=== PATIENT | male | born 1975 | race Caucasian/White ===

== ENCOUNTER → 2018-03-18 15:09 | Outpatient (CLI) | payer BC, SELFPAY ==
--- NOTE | 2018-03-18 15:18 | XR_ITS ---
XR ankle LT min 3V HISTORY: Pain following injury ITS.REASON: LEFT ANKLE INJURY ORDERING PHYSICIAN: Rick Neal MD PATIENT AGE: 42 years COMPARISON: None FINDINGS: Study is obtained through a splint/cast. Minimally displaced avulsion fracture involves the tip of the medial malleolus. On the lateral view there is a longitudinal lucency along the posterior aspect of the distal tibia/fibula suggesting a nondisplaced fracture. Correlation with precast films needed to determine which bone exactly this is in. IMPRESSION: 1. Minimally displaced avulsion fracture of the tip of the medial malleolus. 2. Longitudinal fracture of the posterior aspect of the distal tibia/fibular region. This may be in the fibula. Correlation with precast images needed
== END ==
PROVIDERS: PCP Physician Assistant; Visit Provider Orthopaedic Surgery
DX: S82.852A Displaced trimalleolar fracture of left lower leg, initial encounter for closed fracture (principal); S82.832A Other fracture of upper and lower end of left fibula, initial encounter for closed fracture
CPT/HCPCS: 73610

== ENCOUNTER → 2018-04-03 08:29 | Outpatient (CLI) | payer BC, SELFPAY ==
--- NOTE | 2018-04-03 08:34 | XR_ITS ---
XR ankle LT min 3V HISTORY: Follow-up surgery ITS.REASON: 2 week post op ORDERING PHYSICIAN: Rick Neal MD PATIENT AGE: 42 years Comparison: None FINDINGS: Study is obtained through cast. Status post syndesmosis repair with transverse lucencies at the distal tibia and fibula with 2 small metallic buttons on the medial aspect of the tibia and fibula overall not severely change. The ankle mortise is preserved. Avulsion fractures present medial malleolus. Suspected longitudinal fracture posterior distal tibia in good alignment IMPRESSION: Overall no change status post syndesmosis repair of the tibia and fibula
== END ==
PROVIDERS: PCP Physician Assistant; Visit Provider Orthopaedic Surgery
DX: Z48.89 Encounter for other specified surgical aftercare (principal)
CPT/HCPCS: 73610

== ENCOUNTER → 2018-05-01 10:26 | Outpatient (CLI) | payer BC, SELFPAY ==
--- NOTE | 2018-05-01 10:28 | XR_ITS ---
XR ankle LT min 3V HISTORY: Follow-up fracture/ORIF ITS.REASON: fracture ORDERING PHYSICIAN: Rick Neal MD PATIENT AGE: 42 years Comparison: 04/03/2018 FINDINGS: Status post syndesmosis repair with a transverse lucency through the distal tibia and fibula with metallic density on each end of the lucencies consistent with a fixation device. There remains good alignment. The ankle mortise is preserved. Avulsion fracture of the medial malleolus with skin noted. There may also be a fracture of the posterior distal tibia with good alignment. IMPRESSION: Good alignment status post ORIF tib-fib fracture
== END ==
PROVIDERS: PCP Physician Assistant; Visit Provider Orthopaedic Surgery
DX: S82.90XA Unspecified fracture of unspecified lower leg, initial encounter for closed fracture (principal); S99.919A Unspecified injury of unspecified ankle, initial encounter
CPT/HCPCS: 73610

== ENCOUNTER 2018-05-01 11:52 | Outpatient (RCR) | payer BC, SELFPAY | END 2018-05-01 11:53 | disposition home or self-care (01) | LOC: PT 11:52 | PROVIDERS: PCP Physician Assistant; Visit Provider Orthopaedic Surgery | DX: S82.862A Displaced Maisonneuve's fracture of left leg, initial encounter for closed fracture (principal) | CPT/HCPCS: 97760 ==

== ENCOUNTER → 2018-06-18 12:58 | Outpatient (CLI) | payer BC, SELFPAY ==
--- NOTE | 2018-06-18 13:00 | XR_ITS ---
XR ankle LT min 3V HISTORY: Follow-up ORIF ITS.REASON: LEFT ankle fu ORDERING PHYSICIAN: Rick Neal MD PATIENT AGE: 42 years Comparison: 05/01/2018 FINDINGS: There is diffuse decreased density of the distal tibia, fibula, and proximal tail is consistent with disuse osteoporosis. There remains good alignment of the distal tibia and fibula with no widening of the ankle mortise status post syndesmosis repair. Avulsion fracture of the tip of the medial malleolus once again noted. 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
== END ==
PROVIDERS: PCP Physician Assistant; Visit Provider Orthopaedic Surgery
DX: S99.912A Unspecified injury of left ankle, initial encounter (principal)
CPT/HCPCS: 73610

== ENCOUNTER 2018-07-10 14:00 | Outpatient (RCR) | payer BC, SELFPAY ==
--- NOTE | 2018-07-02 16:06 | [facility]H.PTOPEV ---
PT Outpatient Evaluation Rehab PT Outpatient Evaluation Start: 07/02/18 14:43 Freq: Status: Active Protocol: Document 07/02/18 14:43 KATHY (Rec: 07/02/18 16:05 [email or web address] [id number]) Electronically Signed By Kelvin Walsh, MADHU 07/02/18 14:43 Outpatient Therapy Subjective History Subjective History Pt. is a 42 year old white male who presents to outpatient PT s/p L maisonneuve's fracture in March 2018. Pt. reports slipping and falling onto LLE while walking [place] from [place] in February 2018. Positive diagnostic imaging for fractures in his left lower leg per pt. report. Pt. reported having a cast and crutches post surgery, then progressed to a boot with crutches for a month, and now has an ankle orthotic with one crutch. Pt. reports currently off work since February 2018 and returns to [place] in 1 month for a check up. PMH includes a broken R ankle, R clavicle, L wrist, and high cholesterol. Current medicine includes Prilosec, and Excedrin. Chief Complaint Pain Swelling Other Symptom Type Ache Sharp Symptoms Relieved By Heat Ice Prescription Meds Symptoms Aggravated By Standing Physical Activity Walking Prior Functional Limitations None Current Functional Limitations Standing Squatting Recreation Activity Walking Stairs Balance Symptom Description Activity Dependent Level of pain today (0-10) 2 Pain scale - at its best (0-10) 0 Pain scale - at its worst (0-10) 6 Ankle/Foot Eval Gait Observation General Gait Pattern Observation Antalgic Gait Decrease Weight Bear (L) Decrease Stride Lngth (R) Assistive Device Ambulation Assistive Device Axillary Crutches Palpation Tenderness
== END 2018-08-12 09:38 | disposition home or self-care (01) ==
LOC: PT 14:00
PROVIDERS: PCP Physician Assistant; Visit Provider Orthopaedic Surgery
DX: S82.92XA Unspecified fracture of left lower leg, initial encounter for closed fracture
CPT/HCPCS: 97010; 97014; 97110; 97163; G0283

== ENCOUNTER → 2018-07-31 13:27 | Outpatient (CLI) | payer BC, SELFPAY ==
--- NOTE | 2018-07-31 13:29 | XR_ITS ---
XR ankle LT min 3V Ordering Physician: Joshua Wade MD Patient Age: 42 years: Male HISTORY: ITS.REASON: LT ankle fu TECHNIQUE: 3 views left ankle COMPARISON :May 01, 2018 left ankle series . FINDINGS: Status post syndesmosis repair with a faint transverse lucency through the distal tibia and fibula with metallic fixation point within the medial and lateral aspect of these lucent tracts-consistent with a fixation device. There remains good alignment at the distal tibia and fibula. The ankle mortise appears satisfactory. Small avulsion fracture at the tip the medial malleolus with slight additional sclerosis about the tip of medial malleolus in this area. Possibly some subchondral cystic changes here as well... These features slightly more evident and reflect some interval healing likely in this region.. There seems to be an element of element of disuse osteopenia... This Suggested more so today than previous. Requires correlation. Significant progressive healing at the fracture of the posterior malleolus.. Fracture line here no longer evident. IMPRESSION:--------- Good alignment status post ORIF tib-fib fracture. Progressive healing at medial malleolus posterior malleolus and elsewhere since April.. However there is suggestion of slight additional osteopenia. 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 IMPRESSION:
== END ==
PROVIDERS: PCP Physician Assistant; Visit Provider Orthopaedic Surgery
DX: S82.90XA Unspecified fracture of unspecified lower leg, initial encounter for closed fracture (principal)
CPT/HCPCS: 73610

== ENCOUNTER → 2018-09-16 13:35 | Outpatient (CLI) | payer BC, SELFPAY ==
--- NOTE | 2018-09-16 13:36 | XR_ITS ---
XR ankle LT min 3V HISTORY: ITS.REASON: follow up ORDERING PHYSICIAN: Joshua Wade MD PATIENT AGE: 42 years Comparison: None FINDINGS: Status post syndesmosis repair of the distal tib-fib with lucent transverse fixators and metallic buttons at the distal tibia and fibula with good alignment. There are mild hypertrophic changes of the tip of the medial and lateral malleoli region. The talar dome has an unremarkable appearance. IMPRESSION: Good alignment status post distal tib-fib syndesmosis repair
--- NOTE | 2018-09-16 13:36 | XR_ITS ---
XR tibia fibula LT 2V CLINICAL INDICATION: Follow-up syndesmosis repair ITS.REASON: follow up ORDERING PHYSICIAN: Joshua Wade MD PATIENT AGE: 42 years Comparison: 07/31/2018 FINDINGS: Status post syndesmosis repair of the distal tib-fib with lucent transverse fixators and metallic buttons at the distal tibia and fibula with good alignment. Proximal and mid aspect of the tibia and fibula have an unremarkable appearance. IMPRESSION: Good alignment status post distal tib-fib syndesmosis repair
== END ==
PROVIDERS: PCP Physician Assistant; Visit Provider Orthopaedic Surgery
DX: S82.839A Other fracture of upper and lower end of unspecified fibula, initial encounter for closed fracture (principal); S82.853A Displaced trimalleolar fracture of unspecified lower leg, initial encounter for closed fracture
CPT/HCPCS: 73590; 73610

== ENCOUNTER 2018-10-01 11:00 | Outpatient (RCR) | payer BC, SELFPAY ==
--- NOTE | 2018-08-20 15:29 | [facility]H.PTOPEV ---
PT Outpatient Evaluation Rehab PT Outpatient Evaluation Start: 08/20/18 14:15 Freq: Status: Active Protocol: Document 08/20/18 14:48 [email or web address] (Rec: 08/20/18 15:29 [email or web address] [id number]) Electronically Signed By Kelvin Walsh, MADHU 08/20/18 14:48 Outpatient Therapy Subjective History Subjective History Pt. is a 42 year old male who presents to outpatient PT s/p L maisonneuve's fracture in March 2018. Pt. reports slipping and falling onto LLE while walking [place] from his cabin in February 2018. Positive diagnostic imaging for fractures in his left lower leg per pt. report. Pt. reported having a cast and crutches post surgery, then progressed to a boot with crutches for a month, and now has an ankle splint with one crutch. Pt. reported recently walking without any AD for 2 weeks now. Pt. reports currently off work since February 2018 and returns to [place] on09/16 for a check up with a plan on returning to work on . PMH includes a broken R ankle, R clavicle, L wrist, and high cholesterol. Current medicine includes Prilosec, and Excedrin. Chief Complaint Pain Stiff Symptom Type Ache Symptoms Relieved By Ice Brace/Support Prescription Meds Symptoms Aggravated By Standing Physical Activity Walking Prior Functional Limitations None Current Functional Limitations Standing Recreation Activity Walking Stairs Balance Symptom Description Activity Dependent Level of pain today (0-10) 0 Pain scale - at its best (0-10) 0 Pain scale - at its worst (0-10) 6 Ankle/Foot Eval Gait Observation General Gait Pattern Observation Decrease Weight Bear (L) Decrease Stride Lngth (R) Assistive Device Ambulation
== END 2018-11-03 13:21 | disposition home or self-care (01) ==
LOC: PT.CARL 11:00
PROVIDERS: Visit Provider Orthopaedic Surgery
DX: S82.862A Displaced Maisonneuve's fracture of left leg, initial encounter for closed fracture (principal)
CPT/HCPCS: 97010; 97014; 97110; 97112; 97140; 97163; 97164; G0283

== ENCOUNTER → 2018-10-24 08:27 | Outpatient (CLI) | payer BC, SELFPAY ==
--- NOTE | 2018-10-24 08:31 | XR_ITS ---
XRLT min 3V HISTORY: Post syndesmosis repair ITS.REASON: follow up from surgery 03/20/[address] Neal ORDERING PHYSICIAN: Joshua Wade MD PATIENT AGE: 43 years Comparison: 09/16/2018 FINDINGS: The medial and lateral malleolus appear intact. There Is minimal spurring of the tip of the medial malleolus. There is minor cortical irregularity of the tip of the lateral malleolus. There are metallic buttons seen adjacent to the distal tibia and fibula at the diametaphyseal zone and these were noted previously.. The ankle mortise appears grossly normal.. IMPRESSION: Stable left ankle post syndesmosis repair
== END ==
PROVIDERS: PCP Physician Assistant; Visit Provider Orthopaedic Surgery
DX: S82.839A Other fracture of upper and lower end of unspecified fibula, initial encounter for closed fracture (principal); S82.853A Displaced trimalleolar fracture of unspecified lower leg, initial encounter for closed fracture
CPT/HCPCS: 73610